=== PATIENT | female | born 1940 | race African-American/Black ===

== ENCOUNTER → 2018-11-30 | Day surgery (SDC) | payer OTHER | LOC: JRADIR 12:05 ==

== ENCOUNTER 2019-02-01 07:57 | Day surgery (SDC) | payer OTHER ==
[2019-01-31 10:58] VITALS: BMI 25.7
[2019-02-01 08:17] LABS: BASO % 1.4 % (0-2.0); EOS % 3.3 % (0-4.5); HEMATOCRIT 43.5 % (32.4-45.2); HEMOGLOBIN 13.9 GM/dL (10.7-15.3); LYMPH % 28.8 % (8-40); MCH 30.5 pg (25.7-33.7); MEAN CELL VOLUME 95.4 fl (80-96); MEAN PLT VOLUME 7.7 fl (7.5-11.1); MONO % 6.6 % (3.8-10.2); NEUT % 59.9 % (42.8-82.8); PLATELET COUNT 287 K/MM3 (134-434); RBC 4.56 M/mm3 (3.60-5.2); RDW 13.9 % (11.6-15.6); WHITE BLOOD COUNT 8.1 K/mm3 (4.0-10.0)
[2019-02-01 08:41] LABS: ALBUMIN 3.7 g/dl (3.4-5.0); BILIRUBIN,TOTAL 0.5 mg/dL (0.2-1); CALCIUM 9.3 mg/dL (8.5-10.1); POTASSIUM 3.7 mmol/L (3.5-5.1); TOT PROT 7.7 g/dl (6.4-8.2)
[2019-02-01 08:50] VITALS: BP 148/82; PULSE 101; TEMP 98.4
[2019-02-01 08:59] LABS: INR 0.97 (0.83-1.09); PROTHROMBIN TIME (PATIENT) 11.5 SEC (9.7-13.0)
== END 2019-02-01 12:15 | disposition home or self-care (01) ==
LOC: JRADIR 07:57
PROVIDERS: ATTEND Urology
DX: Z53.8 Procedure and treatment not carried out for other reasons (principal)
CPT/HCPCS: 36415; 80053; 85025; 85610

== ENCOUNTER 2019-02-15 08:34 | Day surgery (SDC) | payer OTHER | END 2019-02-15 09:30 | disposition home or self-care (01) | LOC: JRADIR 08:34 ==

== ENCOUNTER 2019-03-01 08:51 | Day surgery (SDC) | payer OTHER ==
[2019-02-28 15:19] VITALS: BMI 25.7
[2019-03-01 09:06] LABS: BASO % 1.1 % (0-2.0); EOS % 3.3 % (0-4.5); HEMATOCRIT 41.7 % (32.4-45.2); HEMOGLOBIN 13.5 GM/dL (10.7-15.3); LYMPH % 31.6 % (8-40); MCH 30.6 pg (25.7-33.7); MCHC 32.2 g/dl (32.0-36.0); MEAN CELL VOLUME 94.9 fl (80-96); MEAN PLT VOLUME 7.2 fl (7.5-11.1); MONO % 7.5 % (3.8-10.2); NEUT % 56.5 % (42.8-82.8); PLATELET COUNT 269 K/MM3 (134-434); RDW 13.4 % (11.6-15.6); WHITE BLOOD COUNT 6.3 K/mm3 (4.0-10.0)
[2019-03-01 09:19] LABS: INR 0.98 (0.83-1.09); PROTHROMBIN TIME (PATIENT) 11.6 SEC (9.7-13.0)
[2019-03-01 17:23] VITALS: BP 145/67; PULSE 89; TEMP 98
== END 2019-03-01 17:15 | disposition home or self-care (01) ==
LOC: JRADIR 08:51
PROVIDERS: ATTEND Urology
PROC: 0T5 Urinary System, Destruction (ICD-10-PCS; principal; 2019-03-01)
PROC: 0T513ZZ Destruction of Left Kidney, Percutaneous Approach (ICD-10-PCS; 2019-03-01)
DX: D41.02 Neoplasm of uncertain behavior of left kidney (principal)
CPT/HCPCS: 50593; 77013; C2618; 36415; 85025; 85610

== ENCOUNTER 2024-06-26 04:27 | Day surgery (SDC) | payer OTHER ==
[2024-06-04 18:00] VITALS: BMI 22.9
[2024-06-26 08:20] VITALS: RESP 18
[2024-06-26 13:35] VITALS: TEMP 97
[2024-06-26 17:07] VITALS: BP 138/85; PULSE 72
== END 2024-06-26 17:00 | disposition home or self-care (01) ==
LOC: JRADIR 04:27
PROVIDERS: ATTEND Urology
PROC: 0TB13ZX Excision of Left Kidney, Percutaneous Approach, Diagnostic (ICD-10-PCS; principal; 2024-06-26)
PROC: 0T513ZZ Destruction of Left Kidney, Percutaneous Approach (ICD-10-PCS; 2024-06-26)
DX: C64.2 Malignant neoplasm of left kidney, except renal pelvis (principal)
CPT/HCPCS: 50593; C2618; 50200; 77012-TC; 88305-TC; 88341-TC; 88342-TC